=== PATIENT | male | born 1975 ===

== ENCOUNTER 2021-05-16 06:00 | Inpatient (IN) | payer OTHER ==
[~2021-05-16 06:00] MED LIST: VALSARTAN-HCTZ1 EAC1 PO
[2021-05-17] MEDS ORDERED: FEXOFENADINE HC60 MG (08:06)
[2021-05-17] MEDS ORDERED: FLONASE16 GM (08:06)
[2021-05-17] MEDS ORDERED: ALLEGRA-D 12 H1 EACH (08:06)
[2021-05-17] MEDS ORDERED: AMLODIPINE BESYL5 MG (08:06)
[2021-05-17] MEDS ORDERED: GENTAFAIR5 ML (08:07)
[2021-05-17] MEDS ORDERED: IRBESARTAN-HCT1 EAC1 (08:07)
== END 2021-05-18 07:58 | disposition home or self-care (01) | DRG 145 ==
LOC: CIR.AMB 06:00 → SURH 20:30
PROVIDERS: ADMIT Otolaryngology; ATTEND Otolaryngology
PROC: 0CBNXZZ Excision of Uvula, External Approach (ICD-10-PCS; 2021-05-16)
PROC: 0CBPXZZ Excision of Tonsils, External Approach (ICD-10-PCS; principal; 2021-05-16 09:00)
DX: G47.33 Obstructive sleep apnea (adult) (pediatric) (principal); J35.1 Hypertrophy of tonsils; J34.3 Hypertrophy of nasal turbinates